=== PATIENT | male | born 2000 | race Caucasian/White ===

== ENCOUNTER → 2024-06-26 | Outpatient (CLI) | payer MEDICAID ==
--- NOTE | 2024-06-26 13:02 | US ---
EXAMINATION TYPE: US scrotum with doppler. DATE OF EXAM: 06/26/2024 COMPARISON: NONE CLINICAL INDICATION: Male, 23 years old with history of N50.811 RIGHT TESTICULAR PAIN; Pt states righ t testicle pain, pt states doctor also felt "something" within right groin TECHNIQUE: Grayscale, color Doppler and spectral Doppler imaging of the scrotum. FINDINGS: EXAM MEASUREMENTS: TESTICLES: Right Testicle: 3.8 x 2.2 x 3.2 cm Left Testicle: 3.9 x 2.2 x 3.1 cm EPIDIDYMIS HEAD: Right Epididymis: 1.4 cm Left Epididymis: 1.2 cm Doppler performed to assess for testicular vascularity; good bilateral color flow and spectral wavefo po are seen. There is no evidence of testicular torsion. Presence of hydroceles: No Presence of varicoceles: No Small right epi tail cyst= 1.1 cm Small left epi head cyst= 0.6 cm Within right groin where pt states doctor felt palp= 1.2 x 0.7 x 0.8 cm probable lymph node IMPRESSION: 1. No evidence for acute process. 2. No evidence for intratesticular mass. 3. Appropriate arterial and venous spectral waveforms to the testes. 4. Lymph node correlates of palpable abnormality in the right groin. This is within normal limits fo r size. [facility], , 06/26/2024 1:00 PM
== END | disposition home or self-care (01) ==
LOC: RADUSWWP 12:11
PROVIDERS: ATTEND Family Medicine
DX: N50.811 Right testicular pain (principal)
CPT/HCPCS: 76870; 93975